=== PATIENT | male | born 1950 | race Caucasian/White ===

== ENCOUNTER 2017-10-13 03:40 | Inpatient (IN) | payer MEDICARE ==
[2017-10-13] MEDS ORDERED: Nitroglycerin 50mg in D5W 50 MG/250 ML BOTTLE IV ONE (03:51)
[2017-10-13] MEDS ORDERED: Nitroglycerin 50mg in D5W 50 MG/250 ML BOTTLE IV SCH ×2 (04:00→04:15)
--- NOTE | 2017-10-13 04:19 | C.PDOC ---
History Of Present Illness 67 year old male with PMHx of CHF is brought to the ED by EMS for evaluation of acute SOB. As per EMS patient had initial blood pressure of 220/110, rales, and diaphoresis. EMS was unsuccessful at obtaining IV and was placed on BIPAP. ON arrival to the ED patient was in respiratory distress unable to answer any questions and trying to pull his mask off. Chief Complaint (Nursing): Respiratory Distress History Per: EMS History/Exam Limitations: clinical condition Onset/Duration Of Symptoms: Hrs Current Symptoms Are (Timing): Still Present Initiating Event: Other (CHF) Quality: Tightness Current Respiratory Medications: See Home Med List Recent travel outside of the [place]: No Additional History Per: EMS Past Medical History Reviewed: Historical Data, Nursing Documentation, Vital Signs Vital Signs: Last Vital Signs Temp Pulse 88 10/13/17 05:16 Resp 25 H 10/13/17 05:17 BP 101/59 L 10/13/17 05:16 Pulse Ox 98 10/13/17 06:37 - Medical History PMH: COPD, HTN Denies: Chronic Kidney Disease Surgical History: No Surg Hx - [facility] Procedures CONTINUOUS INVASIVE MECHANICAL VENTILATION <96 CONSEC HRS (04/03/14) INSERT ENDOTRACHEAL TUBE (04/03/14) LEFT HEART CARDIAC CATH (04/03/14) LT HEART ANGIOCARDIOGRAM (04/03/14) Family History: States: Unknown Family Hx - Social History Hx Tobacco Use: Yes Hx Alcohol Use: No Hx Substance Use: No - Immunization History Hx Tetanus Toxoid Vaccination: Yes Hx Influenza Vaccination: Yes Hx Pneumococcal Vaccination: Yes Review Of Systems Review Of Systems: ROS cannot be obtained secondary to pt's inabilty to answer questions. Physical Exam - Physical Exam Appears: Non-toxic, In Acute Distress, Other (respiratory distress) Skin: Normal Color, Warm, Dry, Diaphoretic Head: Atraumatic, Normacephalic Eye(s): bilateral: Normal Inspection Oral Mucosa: Moist Neck: Normal ROM, Supple Chest: Symmetrical Cardiovascular: Rhythm Regular, Other (initiall BP on [id number]/100) Respiratory: Accessory Muscle Use, Rales, No Rhonchi, No Wheezing, Other (air movement diminished ) Gastrointestinal/Abdominal: Soft, No Tenderness, No Guarding, No Rebound Extremity: Normal ROM, No Tenderness, Capillary Refill (< 2 seconds), No Swelling Pulses: Left Dorsalis Pedis: Normal, Right Dorsalis Pedis: Normal Gait: Unable To Assess ED Course And Treatment - Laboratory Results Result Diagrams: 10/13/17 04:29 10/13/17 04:29 ECG: Interpreted By Me, Viewed By Me ECG Rhythm: Sinus Tachycardia, L BBB, Nonspecific Changes (ST/T ) ECG Interpretation: No Acute Changes Interpretation Of ECG: LBBB, non specific ST/T wave changes, no aicte ischemic changes, no positive or negative concordance found Rate From EC (BPM) O2 Sat by Pulse Oximetry: 98 (on BIPAP) Pulse Ox Interpretation: Normal - Radiology CXR: Interpreted by Me, Viewed By Me CXR Interpretation: Yes: Other (bilateral interstitial marking increased consistent with CHF) Critical Care Time - Critical Care Note Total Time (in mins): 60 Documented critical care: time excludes all time spent performing seperately billable procedures. Medical Decision Making Medical Decision Making: Impression: flash pulmonary edema secondary to HTN crisis Plan: * Labs * ABG * CXR * EKG * Lasix 80 mg IVP * UA Acute rapid response to nitro infusion, lasix due to lack of IV access an IO was placed on humeral head left side. Blood was aspirated and then 80 of lasix was bolused and 1,200 mcg nitro. Disposition - Disposition Disposition: HOSPITALIZED Disposition Time: 06:37 Condition: CRITICAL - Clinical Impression Clinical Impression: Congestive heart failure, Hypertensive CHF - Scribe Statement The provider has reviewed the documentation as recorded by the Scribe Nicho Barboza All medical record entries made by the Scribe were at my direction and personally dictated by me. I have reviewed the chart and agree that the record accurately reflects my personal performance of the history, physical exam, medical decision making, and the department course for this patient. I have also personally directed, reviewed, and agree with the discharge instructions and disposition. Central Line Placement - Central Line Placement Indication: Unable To Obtain Adequate Peripheral Access Central Line Placement: Left: Supraclavicular (IO to humeral head) The Area Was Thoroughly Prepared With: Chlorhexidine Procedure: Sterile Dressing Placed Over Line
[2017-10-13 04:27] LABS: ABG ALLEN TEST POS; ARTERIAL BLOOD GAS HCO3 21.3 mmol/L (21-28); ARTERIAL BLOOD GAS HEMOGLOBIN 12.6 g/dL (11.7-17.4); ARTERIAL BLOOD GAS O2 SAT 90.4 % (95-98); ARTERIAL BLOOD GAS PCO2 55 mm/Hg (35-45); ARTERIAL BLOOD GAS PH 7.24 (7.35-7.45); ARTERIAL BLOOD GAS PO2 56 mm/Hg (80-100); ARTERIAL BLOOD GAS TCO2 25.3 mmol/L (22-28)
[2017-10-13 04:32] LABS: BASO # 0.1 K/uL (0.0-0.2); BASO % 0.6 % (0.0-2.0); EOS # 0.4 K/uL (0.0-0.7); HEMOGLOBIN 13.4 g/dL (12.0-18.0); LYMPH # 4.1 K/uL (1.0-4.3); LYMPH % 29.2 % (20.0-40.0); MEAN CELL VOLUME 85.1 fL (80.0-94.0); MEAN CORPUSCULAR HEMOGLOBIN 27.3 pg (27.0-31.0); MEAN CORPUSCULAR HGB CONC 32.1 g/dL (33.0-37.0); MEAN PLATELET VOLUME 9.1 fL (7.2-11.7); MONO # 0.9 K/uL (0.0-0.8); MONO % 6.8 % (0.0-10.0); NEUT # 8.4 K/uL (1.8-7.0); NEUT % 60.4 % (50.0-75.0); NRBC % 0.1 % (0.0-2.0); RBC 4.89 Mil/uL (4.40-5.90); WHITE BLOOD COUNT 13.9 K/uL (4.8-10.8)
[2017-10-13 04:45] LABS: VENOUS BLOOD GAS BASE EXCESS -4.1 mmol/L (0.0-2.0); VENOUS BLOOD GAS PCO2 60 mmHg (40-60); VENOUS BLOOD GAS PO2 66 mm/Hg (30-55); VENOUS BLOOD PH 7.22 (7.32-7.43)
[2017-10-13 04:47] LABS: ALB/GLOB RATIO 1.3 (1.0-2.1); ALT/SGPT 106 U/L (21-72); AST/SGOT 94 U/L (17-59); BLOOD UREA NITROGEN 11 mg/dL (9-20); CALCIUM 9.1 mg/dl (8.6-10.4); GFR AFRICAN-AMERICAN > 60; GFR NON-AFRICAN AMERICAN > 60
[2017-10-13 04:58] LABS: B-TYPE NATRIURETIC PEPTIDE 1400 pg/mL (0-900)
[2017-10-13 05:25] LABS: ABG ALLEN TEST POS; ARTERIAL BLOOD GAS HCO3 22.8 mmol/L (21-28); ARTERIAL BLOOD GAS HEMOGLOBIN 12.5 g/dL (11.7-17.4); ARTERIAL BLOOD GAS O2 SAT 99.8 % (95-98); ARTERIAL BLOOD GAS PCO2 49 mm/Hg (35-45); ARTERIAL BLOOD GAS PO2 252 mm/Hg (80-100); ARTERIAL BLOOD GAS TCO2 25.6 mmol/L (22-28)
[2017-10-13 05:58] LABS: SQUAMOUS EPITHIAL < 1 /hpf (0-5); URINE BACTERIA RARE (<OCC); URINE BILIRUBIN NEGATIVE (NEGATIVE); URINE BLOOD NEGATIVE (NEGATIVE); URINE CLARITY Clear (Clear); URINE COLOR Straw (YELLOW); URINE GLUCOSE (UA) 1+ mg/dL (Normal); URINE LEUKOCYTE ESTERASE NEG Leu/uL (Negative); URINE PROTEIN 2+ mg/dL (NEGATIVE); URINE UROBILINOGEN NORMAL mg/dL (0.2-1.0)
--- NOTE | 2017-10-13 09:51 | RAD ---
HISTORY: Sepsis Patient COMPARISON: Comparison made with prior study dated 04/07/2014 FINDINGS: LUNGS: Mild pulmonary venous congestive changes with more confluent opacities in the lower lobes possibly representing alveolar-type infiltrates and small effusions. PLEURA: As above. No pneumothorax apparent. CARDIOVASCULAR: Heart is enlarged. Multi lead pacemaker- defibrillator OSSEOUS STRUCTURES: No significant abnormalities. VISUALIZED UPPER ABDOMEN: Normal. OTHER FINDINGS: None. IMPRESSION: Mild pulmonary venous congestive changes with more confluent opacities in the lower lobes possibly representing alveolar-type infiltrates and small effusions. Cardiomegaly.
[2017-10-14 00:26] VITALS: RESP 20
--- NOTE | 2017-10-14 07:49 | CP.PCM.CON ---
History of Present Illness - History of Present Illness History of Present Illness: Patient asked to evaluate patient by Dr Richardson. Patient yoel 67 year old male with PMH dilated cardiomyopathy s/p AIC HTN who presents with falsh pulmonary edema. Patient states he was working outside and developed progressive dypsnea. He was brought to the ER in pulmonary edema with systolic blood pressure greater than 200 mmHg. The patient was placed on BiPAP and symptoms improved. He currently is normotensive. Review of Systems - Constitutional Constitutional: absent: As Per HPI, Anorexia, Chills, Daytime Sleepiness, Excessive Sweating, Fatigue, Fever, Frequent Falls, Headache, Increased Appetite , Lethargy, Malaise, Night Sweats, Snoring, Sleep Apnea, Weight Gain, Weight Loss, Weakness, Other - EENT Eyes: absent: As Per HPI, Blind Spots, Blurred Vision, Change in Vision, Decreased Night Vision, Diplopia, Discharge, Dry Eye, Exophthalmos, Floaters, Irritation, Itchy Eyes, Loss of Peripheral Vision, Pain, Photophobia, Requires Corrective Lenses, Sees Flashes, Spots in Vision, Tunnel Vision, Other Visual Disturbances, Loss of Vision, Other Ears: absent: As Per HPI, Decreased Hearing, Ear Discharge, Ear Pain, Tinnitus, Abnormal Hearing, Disequilibrium, Dizziness, Other Nose/Mouth/Throat: absent: As Per HPI, Epistaxis, Nasal Congestion, Nasal Discharge, Nasal Obstruction, Nasal Trauma, Nose Pain, Post Nasal Drip, Sinus Pain, Sinus Pressure, Bleeding Gums, Change in Voice, Dental Pain, Dry Mouth, Dysphagia, Halitosis, Hoarsness, Lip Swelling, Mouth Lesions, Mouth Pain, Odynophagia, Sore Throat, Throat Swelling, Tongue Swelling, Facial Pain, Neck Pain, Neck Mass, Other - Cardiovascular Cardiovascular: Dyspnea - Respiratory Respiratory: Dyspnea - Gastrointestinal Gastrointestinal: absent: As Per HPI, Abdominal Pain, Belching, Bloating, Change in Bowel Habits, Change in Stool Character, Coffee Ground Emesis, Constipation, Cramping, Diarrhea, Dyspepsia, Dysphagia, Early Satiety, Excessive Flatus, Fecal Incontinence, Heartburn, Hematemesis, Hematochezia, Loose Stools, Melena, Nausea, Odynophagia, Temesmus, Vomiting, Other - Genitourinary Genitourinary: absent: As Per HPI, Change in Urinary Stream, Difficulty Urinating, Dysuria, Flank Pain, Hematuria, Pyuria, Nocturia, Urinary Incontinence, Urinary Frequency, Urinary Hesitance, Urinary Urgency, Voiding Freq/Small Amts, Freq UTI, Hx Renal/Bladder Calculi, Hx /Renal Surgery, Bladder Distension, Other - Musculoskeletal Musculoskeletal: absent: As Per HPI, Abnormal Gait, Arthralgias, Atrophy, Back Pain, Deformity, Joint Swelling, Limited Range of Motion, Loss of Height, Muscle Cramps, Muscle Weakness, Myalgias, Neck Pain, Numbness, Radiating Pain into Limb, Stiffness, Tingling, Other - Integumentary Integumentary: absent: As Per HPI, Acne, Alopecia, Bleeding Lesions, Change in Hair, Change in Nails, Change in Pigmentation, Changing Lesions, Dry Skin, Erythema, Furuncle, Hirsutism, Lesions, New Lesions, Non-Healing Lesions, Photosensitivity, Pruritus, Rash, Skin Pain, Skin Ulcer, Sores, Striae, Swelling , Unusual Bruising, Wounds, Jaundice, Other - Neurological Neurological: absent: As Per HPI, Abnormal Gait, Abnormal Hearing, Abnormal Movements, Abnormal Speech, Behavioral Changes, Burning Sensations, Confusion, Convulsions, Disequilibrium, Dizziness, Numbness, Focal Weakness, Frequent Falls , Headaches, Lack of Coordination, Loss of Vision, Memory Loss, Paresthesias, Radicular Pain, Restless Legs, Sensory Deficit, Syncope, Tingling, Tremor, Vertigo, Weakness, Other Visual Disturbances, Other - Psychiatric Psychiatric: absent: As Per HPI, Abnormal Sleep Pattern, Anhedonia, Anxiety, Auditory Hallucinations, Behavioral Changes, Change in Appetite, Change in Libido, Confusion, Depression, Difficulty Concentrating, Hallucinations, Homicidal Ideation, Hopelessness, Irritability, Memory Loss, Mood Swings, Panic Attacks, Paranoia, Suicidal Ideation, Visual Hallucinations, Tactile Hallucinations, Other - Endocrine Endocrine: absent: As Per HPI, Change in Body Appearance, Change in Libido, Cold Intolorance, Deepening of Voice, Excessive Sweating, Fatigue, Flushing, Heat Intolorance, Increase in Ring/Shoe/Hat Size, Palpitations, Polydipsia, Polyphagia, Polyuria, Other - Hematologic/Lymphatic Hematologic: absent: As Per HPI, Easy Bleeding, Easy Bruising, Lymphadenopathy, Other Past Patient History - Past Medical History & Family History Past Medical History?: No - Past Social History Smoking Status: Former Smoker - CARDIAC Hx Hypertension: Yes - PULMONARY Hx Chronic Obstructive Pulmonary Disease (COPD): Yes - NEUROLOGICAL Hx Neurological Disorder: No - HEENT Hx HEENT Problems: No - RENAL Hx Chronic Kidney Disease: No - ENDOCRINE/METABOLIC Hx Endocrine Disorders: Yes Hx Diabetes Mellitus Type 2: Yes - HEMATOLOGICAL/ONCOLOGICAL Hx Blood Disorders: No - INTEGUMENTARY Hx Dermatological Problems: No - MUSCULOSKELETAL/RHEUMATOLOGICAL Hx Musculoskeletal Disorders: No Hx Falls: No - GASTROINTESTINAL Hx Gastrointestinal Disorders: No - GENITOURINARY/GYNECOLOGICAL Hx Genitourinary Disorders: No - PSYCHIATRIC Hx Substance Use: No - SURGICAL HISTORY Hx Surgeries: No - ANESTHESIA Hx Anesthesia: Yes Hx Anesthesia Reactions: No Hx Malignant Hyperthermia: No Meds Allergies/Adverse Reactions: Allergies Allergy/AdvReac Type Severity Reaction Status Date / Time No Known Allergies Allergy Verified 10/13/17 03:45 - Medications Medications: Current Medications Aspirin (Ecotrin) 81 mg PO DAILY [facility] Carvedilol (Coreg) 12.5 mg PO BID [facility] Last Admin: 10/13/17 17:27 Dose: 12.5 mg Enoxaparin Sodium (Lovenox) 40 mg SC DAILY [facility] Furosemide (Lasix) 40 mg IVP DAILY [facility] Nitroglycerin/Dextrose (Nitroglycerin 50 Mg/250 Ml D5w) 50 mg in 250 mls @ 6 mls/hr IV .Q24H [facility]; 20 MCG/MIN PRN Reason: Protocol Last Admin: 10/13/17 04:54 Dose: Not Given Losartan Potassium (Cozaar) 25 mg PO DAILY [facility] Last Admin: 10/13/17 13:36 Dose: 25 mg Metformin HCl (Glucophage) [facility] Last Admin: 10/13/17 16:41 Dose: 500 mg Potassium Chloride (Klor-Con 10) 10 meq PO DAILY [facility] Physical Exam - Constitutional Appears: Non-toxic - Head Exam Head Exam: NORMAL INSPECTION - Eye Exam Eye Exam: Normal appearance - ENT Exam ENT Exam: Mucous Membranes Moist - Neck Exam Neck exam: Positive for: Full Rom - Respiratory Exam Respiratory Exam: NORMAL BREATHING PATTERN - Cardiovascular Exam Cardiovascular Exam: REGULAR RHYTHM - GI/Abdominal Exam GI & Abdominal Exam: Normal Bowel Sounds - Rectal Exam Rectal Exam: Deferred - Extremities Exam Extremities exam: Negative for: pedal edema - Back Exam Back exam: NORMAL INSPECTION - Neurological Exam Neurological exam: Alert, Oriented x3 - Psychiatric Exam Psychiatric exam: Normal Affect - Skin Skin Exam: Normal Color Results - Vital Signs Recent Vital Signs: Last Vital Signs Temp 98.1 F 10/14/17 00:00 Pulse 85 10/14/17 00:00 Resp 20 10/14/17 00:00 BP 124/77 10/14/17 00:00 Pulse Ox 100 10/14/17 00:00 - Labs Result Diagrams: 10/13/17 04:29 10/13/17 04:29 Labs: Laboratory Results - last 24 hr 10/13/17 10/13/17 10/13/17 11:01 16:22 21:14 POC Glucose (mg/dL) 107 117 H 134 H 10/14/17 06:24 POC Glucose (mg/dL) 125 H - EKG Data EKG Interpreted by: Myself EKG shows normal: Sinus rhythm Assessment & Plan (1) Dilated cardiomyopathy Assessment and Plan: s/p AICD. normal function Status: Acute (2) Congestive heart failure Assessment and Plan: acute on chronic systolic and diastolic heart failure. improved. recommend continued medical therapy. can d/c home with outpatient follow up. Status: Acute
[2017-10-14 07:53] VITALS: TEMP 97.7; O2SAT 98
[2017-10-14] MEDS ORDERED: Enoxaparin 40 mg Syringe SC SCH (10:00)
[2017-10-14] MEDS ORDERED: Potassium Chloride 10 mEq ER Tab PO SCH (10:00)
[2017-10-14 10:14] VITALS: BP 146/77
[2017-10-14 10:32] LABS: BASO % 0.7 % (0.0-2.0); EOS # 0.2 K/uL (0.0-0.7); EOS % 2.7 % (0.0-4.0); LYMPH # 1.2 K/uL (1.0-4.3); LYMPH % 20.7 % (20.0-40.0); MEAN CELL VOLUME 84.2 fL (80.0-94.0); MEAN CORPUSCULAR HEMOGLOBIN 28.2 pg (27.0-31.0); MEAN CORPUSCULAR HGB CONC 33.4 g/dL (33.0-37.0); MEAN PLATELET VOLUME 8.4 fL (7.2-11.7); MONO # 0.3 K/uL (0.0-0.8); MONO % 5.1 % (0.0-10.0); NEUT # 4.1 K/uL (1.8-7.0); NEUT % 70.8 % (50.0-75.0); RBC 4.27 Mil/uL (4.40-5.90); RED CELL DISTRIBUTION WIDTH 13.8 % (11.5-14.5)
[2017-10-14 10:33] LABS: WHITE BLOOD COUNT 5.8 K/uL (4.8-10.8)
[2017-10-14 10:57] LABS: ALB/GLOB RATIO 1.3 (1.0-2.1); ALBUMIN 3.9 g/dL (3.5-5.0); ALT/SGPT 76 U/L (21-72); AST/SGOT 44 U/L (17-59); BLOOD UREA NITROGEN 17 mg/dL (9-20); CALCIUM 8.7 mg/dl (8.6-10.4); GFR AFRICAN-AMERICAN > 60; GFR NON-AFRICAN AMERICAN > 60
[2017-10-14 11:16] LABS: HEPATITIS B SURFACE AG Negative (NEGATIVE)
[2017-10-14 11:22] LABS: HEPATITIS A IGM NEGATIVE (NEGATIVE); HEPATITIS B CORE AB NEGATIVE (NEGATIVE)
[2017-10-14 11:33] LABS: HEPATITIS C ANTIBODY NEGATIVE (NEGATIVE)
[2017-10-14 16:39] VITALS: PULSE 90
--- NOTE | 2017-10-14 17:04 | CP.PCM.PN ---
Subjective - Date & Time of Evaluation Date of Evaluation: 10/14/17 Time of Evaluation: 17:02 - Subjective Subjective: Internal Medicine Progress Note - Dr Richardson Service Patient seen and examined at bedside. Per nursing no acute events overnight. Patient is doing well, states that his shortness of breath has markedly improved. Denies headaches, dizziness, cp, palpitations, sob, abdominal pain, urinary symptoms, changes in bowel habits. Objective - Vital Signs/Intake and Output Vital Signs (last 24 hours): Temp Pulse Resp BP Pulse Ox 97.7 F 90 20 146/77 98 10/14/17 07:00 10/14/17 10:09 10/14/17 07:00 10/14/17 10:12 10/14/17 07:00 Intake and Output: 10/14/17 10/14/17 06:59 18:59 Intake Total 510 Balance 510 - Labs Labs: 10/14/17 10:26 10/14/17 10:26 - Constitutional Appears: Non-toxic, No Acute Distress - Head Exam Head Exam: ATRAUMATIC, NORMAL INSPECTION, NORMOCEPHALIC - Eye Exam Eye Exam: EOMI, Normal appearance Pupil Exam: NORMAL ACCOMODATION - ENT Exam ENT Exam: Mucous Membranes Moist - Neck Exam Neck Exam: Full ROM - Respiratory Exam Respiratory Exam: Clear to Ausculation Bilateral, NORMAL BREATHING PATTERN. absent: Rales, Rhonchi, Wheezes - Cardiovascular Exam Cardiovascular Exam: REGULAR RHYTHM, +S1, +S2 - GI/Abdominal Exam GI & Abdominal Exam: Soft, Normal Bowel Sounds. absent: Guarding, Rigid, Tenderness - Rectal Exam Rectal Exam: Deferred - Extremities Exam Extremities Exam: Normal Inspection - Neurological Exam Neurological Exam: Alert, Awake, Oriented x3 - Psychiatric Exam Psychiatric exam: Normal Affect, Normal Mood - Skin Skin Exam: Dry, Normal Color, Warm Assessment and Plan - Assessment and Plan (Free Text) Assessment: A/P: Patient is a 67 year old male with past medical history of CHF, dilated cardiomyopathy s/p AICD, HTN presented to the ED with worsening shortness of breath. Patient was found to be in flash pulmonary edema and hypertensive crisis. Shortness of breath 2/2 pulmonary edema -Stable, afebrile -No longer dyspnic at rest and on exertion -Continue Lasix 20mg PO daily -Kdur 10meq daily Acute on chronic systolic and diastolic CHF/Dilated Cardiomyopathy -Improved -Continue Aspirin 81 mg PO daily -Coreg 12.5 mg PO BID -Continue Lasix 20mg PO daily -Maintain low salt diet, billing typist referral placed Hypertension -Coreg 12.5mg PO BID -Cozaar 25mg PO daily History of Diabetes Mellitus -Metformin 500mg PO BID -Accuchecks ACHS GI/DVT ppx: -No GI ppx indicated at this time -Lovenox 40mg SC daily DISPO: Patient cleared by cardiology. Will discharge home. Patient encouraged to maintain low salt diet and comply with medications. Patient to follow up with PMD and optoelectronics engineer within 1 week. Plan discussed with Dr Richardson. Melanie Valdez DO PGY-2
--- NOTE | 2017-10-14 19:59 | CARD ---
APPROVED REPORT EKG Measurement Heart [id number] <Conclusion> Sinus tachycardia Possible Left atrial enlargement Left bundle branch block Abnormal ECG
--- NOTE | 2017-10-15 05:26 | HP ---
HISTORY OF PRESENT ILLNESS: A 67-year-old male admitted to the hospital with a chief complaint of seizure PHYSICAL EXAMINATION: GENERAL: The patient was awake, alert, and oriented. VITAL SIGNS: Temperature 98, pulse 90. HEENT: Within normal limits. NECK: Supple. CHEST: Symmetrical. HEART: Regular. ABDOMEN: Soft. EXTREMITIES: No edema. IMPRESSION: Alcoholism, seizure. The patient . Charli Richardson MD
--- NOTE | 2017-10-15 07:50 | IP.NPCORE ---
Heart Failure Core Measure - Heart Failure Ejection Fraction: Less Than 40 % HUY Inhibitor Prescribed: No Contraindication/Reason for not providing: on ARB Beta-Bharath Prescribed: Carvedilol Angiotensin II Receptor Bharath Prescribed: Yes AnticoagulationTherapy for Atrial Fibrillation/Atrialflutter: No Contraindication/Reason for not providing: NO HX OF AFIB Aldosterone Antagonist Prescribed: No Contraindication/Reason for not providing: NOT INDICATED BY THE MARKETING TEAM LEAD Hydralazine Nitrate Prescribed: No Contraindication/Reason for not providing: NOT INDICATED BY THE MARKETING TEAM LEAD Implantable Cardioverter Defibrillator Therapy: Yes Cardiac Resynchronization Therapy Prescribed: No Contraindication/Reason for not providing: PATIENT HAS AN AICD - Follow up Will be discharged to: Home Follow Up Date (must be within 7 days from discharge): 10/21/17 Follow Up Time: 09:00
== END 2017-10-14 12:28 | disposition home or self-care (01) | DRG 304 ==
LOC: C.ER 03:40 → C.9E 05:40 → C.5S 08:18
PROVIDERS: ADMIT Internal Medicine Pulmonary Disease; ATTEND Internal Medicine Pulmonary Disease
PROC: 5A1935Z Respiratory Ventilation, Less than 24 Consecutive Hours (ICD-10-PCS; principal; 2017-10-13)
DX: I16.9 Hypertensive crisis, unspecified (principal); I50.43 Acute on chronic combined systolic (congestive) and diastolic (congestive) heart failure; I42.0 Dilated cardiomyopathy; I11.0 Hypertensive heart disease with heart failure; Z87.891 Personal history of nicotine dependence; J44.9 Chronic obstructive pulmonary disease, unspecified; F10.20 Alcohol dependence, uncomplicated; R56.9 Unspecified convulsions; Z95.810 Presence of automatic (implantable) cardiac defibrillator; E11.9 Type 2 diabetes mellitus without complications; Z79.4 Long term (current) use of insulin